=== PATIENT | male | born 1995 | race Asian ===

== ENCOUNTER 2016-06-08 12:08 | Emergency (ER) | payer OTHER ==
[~2016-06-08] VITALS: Ht 182.9 cm; Wt 86.4 kg
[2016-06-08 12:10] VITALS: BP 148/92; PULSE 79; RESP 14; TEMP 98.6; O2SAT 97
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
== END 2016-06-08 13:44 | disposition home or self-care (01) ==
LOC: NEPB 12:08
DX: S80.02XA Contusion of left knee, initial encounter (principal); V43.52XA Car driver injured in collision with other type car in traffic accident, initial encounter; Y93.89 Activity, other specified; Y92.410 Unspecified street and highway as the place of occurrence of the external cause
CPT/HCPCS: 99283